=== PATIENT | female | born 1995 | race Caucasian/White ===

== ENCOUNTER 2016-10-03 00:55 | Emergency (ER) | payer OTHER ==
[2016-10-03] MEDS ORDERED: LIDOCAINE VIS-MYLANTA 30 ML UD PO ONE (01:15)
[2016-10-03] MEDS ORDERED: diazePAM 2 MG TAB PO ONE (01:15)
[2016-10-03] MEDS ORDERED: HYDROcodone 5MG/APAP 325MG 1 EA TAB PO ONE (01:15)
[2016-10-03] MEDS ORDERED: KETOROLAC TROMETHAMINE INJ 30 MG/ML VIAL IM ONE (01:16)
[2016-10-03] MEDS ORDERED: SODIUM CHLORIDE 0.9% 1000ML 1,000 ML IVS ONE (01:20)
--- NOTE | 2016-10-03 01:52 | RAD ---
Procedure: XR ABDOMEN 2 VIEWS SUPINE ERECT Exam Date: 10/03/2016 Ordering Provider: Selwyn Michel Clinical Indication: back, chest, abd pain, 3 wks post Comparison: 12/23/2013 Findings: Cardiomediastinal silhouette is within normal limits. No focal lung consolidation. No pleural effusion. No pneumothorax. There is no small or large bowel distention. There is no pneumoperitoneum. There are no suspicious calcifications. Pelvic phleboliths. There is no acute skeletal abnormality. Impression: 1. No acute findings. Electronically signed by: Geovanny Quinones MD 10/03/2016 1:51 AM CDT
--- NOTE | 2016-10-03 02:40 | ED.PDOC ---
History of Present Illness - General Chief Complaint: Chest Pain/OR Stated Complaint: chest pain Time Seen by Provider: 10/03/16 01:09 Source: patient Exam Limitations: no limitations - History of Present Illness Initial Comments: the patient is a 21-year-old female presenting to the emergency room secondary to diffuse back pain that is radiating around to her chest and epigastric area. The patient feels better rocking and moving around. No fever. She has had pain for several hours but just got worse in the last hour. No palpitations. No syncope or near syncope. No shortness of breath. She is very anxious and worked up. She has had poor sleep and she just gave 3 weeks ago. She had been trying to breast-feed but has not had much luck. Timing/Duration: 1 hour Severity: moderate Improving Factors: movement Worsening Factors: immobilization Associated Symptoms: malaise Allergies/Adverse Reactions: Allergies NO KNOWN ALLERGY Allergy (Verified 10/03/16 01:41) Home Medications: Ambulatory Orders Cyclobenzaprine HCl [Flexeril] 5 mg PO TID PRN #30 tab 10/03/16 and Iron 10/03/16 Zoloft 10/03/16 Review of Systems - Review of Systems Constitutional: States: malaise EENTM: States: no symptoms reported Respiratory: States: no symptoms reported Cardiology: States: chest pain - ore along the lateral ribs Gastrointestinal/Abdominal: States: abdominal pain, nausea - epigastricmild Genitourinary: States: no symptoms reported Musculoskeletal: States: back pain, muscle pain Neurological: States: anxiety Endocrine: States: no symptoms reported All other Systems: No Change from Baseline Past Medical History (General) - Patient Medical History Hx Seizures: No Hx Stroke: No Hx Dementia: No Hx Asthma: No Hx of COPD: No Hx Cardiac Disorders: No Hx Congestive Heart Failure: No Hx Pacemaker: No Hx Hypertension: No Hx Thyroid Disease: No Hx Diabetes: No Hx Gastroesophageal Reflux: No Hx Renal Disease: No Hx Cancer: No Hx of HIV: No Hx Hepatitis C: No Hx MRSA: No Surgical History: tonsillectomy - Vaccination History Hx Tetanus, Diphtheria Vaccination: Yes Hx Influenza Vaccination: Yes Hx Pneumococcal Vaccination: No Immunizations Up to Date: Yes - Social History Hx Tobacco Use: Yes Hx Chewing Tobacco Use: No Hx Alcohol Use: No Hx Substance Use: No Hx Substance Use Treatment: No Hx Depression: Yes Feels Threatened In Home Enviroment: No Feels Threatened In a Relationship: No Hx Physical Abuse: No Hx Emotional Abuse: No Hx Suspected Abuse: No - Activities of Daily Living Hospice Agency (if applicable):: None - Female History Patient is a Female of Child Bearing Age (10 -59 yrs old): Yes Hx Last Menstrual Period: 10/02/16 Patient : No - Triage Comment ED Triage Comment: pt states she was put on zoloft after giving due to depression. Family Medical History - Family History Mother Family History: No Known Living Status: Still Living Hx Family Asthma: No Hx Family Hypertension: Yes Physical Exam - Physical Exam General Appearance: Alert, Anxious, Restless Eye Exam: bilateral normal Ears, Nose, Throat: hearing grossly normal, normal ENT inspection, normal pharynx Neck: non-tender, full range of motion, supple Respiratory: lungs clear, normal breath sounds, no respiratory distress, no accessory muscle use, other - her torso in general is sore including her upper back and lower backon both sides of her spine Cardiovascular/Chest: normal peripheral pulses, regular rate, rhythm, no edema Peripheral Pulses: radial,right: 2+, radial,left: 2+, dorsalis pedis,right: 2+, dorsalis pedis,left: 2+ Gastrointestinal/Abdominal: normal bowel sounds, non tender - the exception of some discomfort in her epigastric area, soft Rectal Exam: deferred Back Exam: no vertebral tenderness, CVA tenderness (R), CVA tenderness (L), other - see above Extremity: normal range of motion, non-tender, normal inspection, no pedal edema Neurologic: gusset edger II-XII nml as tested, no motor/sensory deficits, alert, oriented x 3 - very anxious Skin Exam: normal color Comments: Vital Signs - 24 hr 10/03/16 10/03/16 10/03/16 01:04 01:15 02:05 Temperature 97.7 F Pulse Rate 75 75 Pulse Rate [ 75 75 60 monitor] Respiratory 24 24 18 Rate Blood Pressure 123/79 120/74 [Right Arm] O2 Sat by Pulse 98 98 Oximetry Progress - Progress Progress: 10/03/16 02:42 the patient is a 21-year-old female presenting with torso pain in general. I believe that most of this is related to the physical stresses of new motherhood. She is having some significant muscle spasm throughout her back that is wrapping around her torso. The patient responded well to muscle relaxers and anti-inflammatories as well as rehydration. She needs to keep herself well-hydrated. Motrin or Aleve can be used for pain as she is not breast-feeding. Additionally she will be written for some Flexeril for as needed use for muscle spasm. A heat pad on her back may also help. She does need to do stretches. ER warnings were given for any acute worsening. She should follow-up with her primary care doctor before the end of the week. - Results/Orders Results/Orders: Laboratory Tests 10/03/16 10/03/16 10/03/16 01:35 01:35 01:35 WBC 10.1 RBC 4.56 Hgb 12.5 Hct 37.4 MCV 82.0 MCH 27.3 MCHC 33.3 RDW 13.6 Plt Count 300 MPV 8.3 Absolute Neuts (auto) 5.50 Absolute Lymphs (auto) 3.70 H Absolute Monos (auto) 0.70 Absolute Eos (auto) 0.10 Absolute Basos (auto) 0.00 Neutrophils % 54.6 Lymphocytes % 36.7 Monocytes % 7.4 Eosinophils % 0.8 L Basophils % 0.5 PT 11.5 INR 1.020 PTT (SP) 30.0 D-Dimer, Quantitative < 230 Sodium 142 Potassium 3.6 Chloride 107 Carbon Dioxide 31 Anion Gap 7.6 L BUN 12 Creatinine 0.61 BUN/Creatinine Ratio 19.7 Random Glucose 99 Serum Osmolality 282.9 Calcium 9.2 Magnesium 1.8 Total Bilirubin < 0.2 L AST 21 ALT 28 Alkaline Phosphatase 98 Creatine Kinase 54 CK-MB (CK-2) 0.6 CK-MB (CK-2) % Not Reportable Troponin I < 0.02 B-Natriuretic Peptide 26.4 Serum Total Protein 7.0 Albumin 3.8 Globulin 3.2 Albumin/Globulin Ratio 1.2 Amylase 46 Lipase 39 Urine Color Urine Appearance Urine pH Ur Specific [place] Urine Protein Urine Glucose (UA) Urine Ketones Urine Blood Urine Nitrite Urine Bilirubin Urine Urobilinogen Ur Leukocyte Esterase Urine RBC Urine WBC Ur Epithelial Cells Urine Bacteria 10/03/16 01:45 WBC RBC Hgb Hct MCV MCH MCHC RDW Plt Count MPV Absolute Neuts (auto) Absolute Lymphs (auto) Absolute Monos (auto) Absolute Eos (auto) Absolute Basos (auto) Neutrophils % Lymphocytes % Monocytes % Eosinophils % Basophils % PT INR PTT (SP) D-Dimer, Quantitative Sodium Potassium Chloride Carbon Dioxide Anion Gap BUN Creatinine BUN/Creatinine Ratio Random Glucose Serum Osmolality Calcium Magnesium Total Bilirubin AST ALT Alkaline Phosphatase Creatine Kinase CK-MB (CK-2) CK-MB (CK-2) % Troponin I B-Natriuretic Peptide Serum Total Protein Albumin Globulin Albumin/Globulin Ratio Amylase Lipase Urine Color Yellow Urine Appearance Cloudy Urine pH 7.5 Ur Specific [place] 1.020 Urine Protein Negative Urine Glucose (UA) Negative Urine Ketones Negative Urine Blood Trace-lysed H Urine Nitrite Negative Urine Bilirubin Negative Urine Urobilinogen 0.2 Ur Leukocyte Esterase Small H Urine RBC 0 Urine WBC 1-3 Ur Epithelial Cells 1-3 Urine Bacteria 2+ H acute abdominal series appears benign. EKG showed normal sinus rhythm with a normal MD and QT interval. Very mild right axis deviation. No acute ST segment changes concerning for ischemia. Departure - Departure Clinical Impression: Spasm of muscle, back Disposition: Discharge to Home or Self Care Condition: Fair Departure Forms: ED Discharge - Pt. Copy, Patient Portal Self Enrollment Instructions: DI for Back Spasm Diet: regular diet Activity: increase activity as tolerated Referrals: Tesfaye Churchill MD [Primary Care Provider] - 1-5 Days Prescriptions: Cyclobenzaprine HCl [Flexeril] 5 mg PO TID PRN #30 tab PRN Reason: Muscle Spasms Home Medications: Ambulatory Orders Cyclobenzaprine HCl [Flexeril] 5 mg PO TID PRN #30 tab 10/03/16 and Iron 10/03/16 Zoloft 10/03/16 Additional Instructions: the patient is a 21-year-old female presenting with torso pain in general. I believe that most of this is related to the physical stresses of new motherhood. She is having some significant muscle spasm throughout her back that is wrapping around her torso. The patient responded well to muscle relaxers and anti-inflammatories as well as rehydration. She needs to keep herself well-hydrated. Motrin or Aleve can be used for pain as she is not breast-feeding. Additionally she will be written for some Flexeril for as needed use for muscle spasm. A heat pad on her back may also help. She does need to do stretches. ER warnings were given for any acute worsening. She should follow-up with her primary care doctor before the end of the week.
[2016-10-03 02:52] VITALS: BP 111/44; TEMP 96.9; O2SAT 100
== END 2016-10-03 02:52 | disposition home or self-care (01) ==
LOC: ER 00:55
DX: M62.830 Muscle spasm of back (principal); F32.9 Major depressive disorder, single episode, unspecified; Z87.891 Personal history of nicotine dependence; Z79.899 Other long term (current) drug therapy
CPT/HCPCS: 36415; 74020; 80053; 81001; 82150; 82550; 82553; 83690; 83735; 83880; 84484; 85025; 85379; 85610; 85730; 87086; 93005; J1885; J7030

== ENCOUNTER → 2016-10-24 | Outpatient (CLI) | payer OTHER ==
--- NOTE | 2016-10-24 15:26 | US ---
EXAM DESCRIPTION: US Gallbladder CLINICAL HISTORY: R10.11 right upper quadrant abdominal pain COMPARISON: Abdominal series dated October 03, 2016. TECHNIQUE: Routine sonographic images of the right upper quadrant of the abdomen were acquired and submitted for review. FINDINGS: Liver: The liver is normal in size measuring 14.4 cm at the midclavicular line. Liver parenchyma is mildly increased but is within normal limits. No focal hepatic mass. Bile ducts- Intrahepatic and extrahepatic bile ducts not dilated with common bile duct measuring 2.1 mm. Gallbladder: There is a 5 mm calcification in the neck of the gallbladder. No evidence for wall thickening or pericholecystic fluid. Pancreas: Visualized portion of the pancreas appears unremarkable. Right kidney: Limited images of the right kidney appears unremarkable. Aorta & Inferior vena cava: visualized portions appear normal Ascites: none IMPRESSION: 1. Cholelithiasis without sonographic evidence of acute cholecystitis. Electronically signed by: Rodolfo Castillo MD 10/24/2016 3:25 PM CDT
== END | disposition home or self-care (01) ==
LOC: US 10:16
PROVIDERS: ATTEND Obstetrics & Gynecology
DX: R10.11 Right upper quadrant pain (principal)

== ENCOUNTER 2016-11-11 06:24 | Emergency (ER) | payer OTHER ==
[2016-11-11 06:40] VITALS: TEMP 96.8
[2016-11-11] MEDS ORDERED: LIDOCAINE VIS-MYLANTA 30 ML UD PO ONE (07:15)
--- NOTE | 2016-11-11 07:32 | RAD ---
PROCEDURE: Chest,2 Views CLINICAL HISTORY: abd/chest pain 4hrs INDICATION: Same as above COMPARISON: None available at present TECHNIQUE: PA and and lateral chest radiographs were obtained. FINDINGS: The lung sharif are well inflated. There are no discrete airspace infiltrates, pneumothoraces or pleural effusions. The pulmonary vascularity is normal The cardiomediastinal silhouette is unremarkable for patient's age and sex. IMPRESSION: There is no acute pleural-parenchymal process seen in the imaged lung sharif. Place of interpretation: Teleradiology. Electronically signed by: Rolando Unger MD 11/11/2016 7:30 AM CDT Workstation: [id number]
--- NOTE | 2016-11-11 07:34 | RAD ---
PROCEDURE: Abdomen Flat Upright Clinical History: abd/chest pain 4hrs Indication: Same as above Comparison: Chest x-ray done on the same day Technique: Two views of the abdomen and pelvis were done. Findings: There is no gross evidence of free air in the abdomen or the pelvis . The small and large bowel gas pattern does not show any evidence of obstruction, ileus or bowel wall thickening. There is no visualization of radiopaque calculi in the outline of the urinary tract. The visualized lung bases are unremarkable . There is mild constipation. Impression: There is mild constipation Electronically signed by: Rolando Unger MD 11/11/2016 7:32 AM CDT Workstation: [email or web address]
[2016-11-11 07:52] VITALS: O2SAT 99
[2016-11-11] MEDS ORDERED: MAGNESIUM HYDROXIDE 30 ML UD PO ONE (08:30)
[2016-11-11] MEDS ORDERED: HYDROcodone 7.5MG/APAP 325MG 1 EA TAB PO ONE (08:30)
[2016-11-11] MEDS ORDERED: PROMETHAZINE HCL 25 MG TAB PO ONE (08:31)
[2016-11-11 08:59] VITALS: BP 129/74
--- NOTE | 2016-11-11 09:06 | ED.PDOC ---
History of Present Illness - General Chief Complaint: Chest Pain/IN Stated Complaint: Chest pain Time Seen by Provider: 11/11/16 06:45 Source: patient Exam Limitations: no limitations - History of Present Illness Initial Comments: the patient is a 21-year-old female presenting to the emergency room secondary to lower chest and abdominal pain. The patient has been seen several times for this complaint over the last couple of months by us here at the emergency room as well as by her surveillance monitor the patient had a CT scan a few years ago for abdominal pain that did not show any real significant pathology. The patient had a right upper quadrant ultrasound just a few weeks ago that was essentially negative. The patient has been getting intermittent upper abdominal and lower chest discomfort on at least 8-10 occasions over the last few months since the of her child. No real shortness of breath with the episodes. The episodes tend to come on when she is lying back and being still do have some nausea at times with them. Episodes tend to resolve on their own. Moving around seems to make him a little worse. She does not have any chest pain with aerobic activity or stressful exercise. The episode this morning started around 4 AM she was sleeping. She did have one episode of vomiting yesterday morning. No blood or bile in the vomitus. The patient has not had any bloody or melanotic stools. Exam here today shows no chest tenderness to palpation. She does have significant upper abdominal discomfort palpation. No definite rebound or peritoneal signs. No palpable masses. No bruising. She does report some back pain but there is no back pain to palpation. No palpitations. No syncope or near syncope. The patient had a fairly extensive workup on her last visit here to look for a cardiac etiology. None was found at the time. It was thought that she likely had some gastritis as well as some anxiety and some musculoskeletal pain from the physical demands of a . She has no clinical stigmata of any congestive heart failure. She is regular rate and rhythm currently. She is oxygenating well. Lungs are clear. Timing/Duration: 1-3 hours Severity: moderate Improving Factors: nothing Worsening Factors: movement Associated Symptoms: loss of appetite, nausea/vomiting Allergies/Adverse Reactions: Allergies NO KNOWN ALLERGY Allergy (Verified 10/03/16 01:41) Home Medications: Ambulatory Orders and Iron DAILY 10/03/16 ALPRAZolam [Xanax] 0.5 mg PO PRN PRN 11/11/16 Cyclobenzaprine HCl [Flexeril] 10 mg PO TID PRN 11/11/16 Famotidine 20 mg PO BID #60 tab 11/11/16 Review of Systems - Review of Systems Constitutional: States: no symptoms reported EENTM: States: no symptoms reported Respiratory: States: no symptoms reported Cardiology: States: chest pain - localized under thelower fourth of the sternum Gastrointestinal/Abdominal: States: abdominal pain, constipation, nausea, vomiting Genitourinary: States: no symptoms reported Musculoskeletal: States: no symptoms reported Skin: States: no symptoms reported Neurological: States: anxiety Endocrine: States: no symptoms reported All other Systems: No Change from Baseline Past Medical History (General) - Patient Medical History Hx Seizures: No Hx Stroke: No Hx Dementia: No Hx Asthma: No Hx of COPD: No Hx Cardiac Disorders: No Hx Congestive Heart Failure: No Hx Pacemaker: No Hx Hypertension: No Hx Thyroid Disease: No Hx Diabetes: No Hx Gastroesophageal Reflux: No Hx Renal Disease: No Hx Cancer: No Hx of HIV: No Hx Hepatitis C: No Hx MRSA: No Surgical History: tonsillectomy - Vaccination History Hx Tetanus, Diphtheria Vaccination: Yes Hx Influenza Vaccination: Yes Hx Pneumococcal Vaccination: Yes Immunizations Up to Date: Yes - Social History Hx Tobacco Use: No Hx Chewing Tobacco Use: No Hx Alcohol Use: No Hx Substance Use: No Hx Substance Use Treatment: No Hx Depression: Yes Hx Physical Abuse: No Hx Emotional Abuse: No Hx Suspected Abuse: No - Female History Patient is a Female of Child Bearing Age (10 -59 yrs old): Yes Hx Last Menstrual Period: 10/02/16 Patient : No Family Medical History - Family History Mother Family History: No Known Living Status: Still Living Hx Family Asthma: No Hx Family Hypertension: Yes Physical Exam - Physical Exam General Appearance: Alert, Anxious, No apparent distress - the patient reports the discomfort however when left alone she does fall sleep. she does not appear to be in any distress clinically. She is not diaphoretic. She is not working hard to breathe. No wheezing. Eye Exam: bilateral normal Ears, Nose, Throat: hearing grossly normal, normal ENT inspection, normal pharynx Neck: non-tender, full range of motion, supple Respiratory: chest non-tender, lungs clear, normal breath sounds, no respiratory distress, no accessory muscle use Cardiovascular/Chest: normal peripheral pulses, regular rate, rhythm, no edema Peripheral Pulses: radial,right: 2+, radial,left: 2+, dorsalis pedis,right: 2+, dorsalis pedis,left: 2+ Gastrointestinal/Abdominal: soft, other - diffuse upper abdominal discomfort palpation. No rebound or peritoneal signs. No definite palpable masses. The patient does have a small umbilical hernia that is palpable and not significantly tender. Rectal Exam: deferred Back Exam: normal inspection, no CVA tenderness, no vertebral tenderness Extremity: normal range of motion, non-tender, normal inspection, no pedal edema , no calf tenderness, normal capillary refill Neurologic: client technical specialist II-XII nml as tested, no motor/sensory deficits, alert, normal mood/affect - with the exception of some anxiety, oriented x 3 Skin Exam: normal color Comments: Vital Signs - 24 hr 11/11/16 11/11/16 11/11/16 06:33 06:35 07:33 Temperature 96.8 F L Pulse Rate 90 Pulse Rate [ 90 90 85 Left radial] Respiratory 18 18 18 Rate Blood Pressure 143/80 129/90 [Right Arm] O2 Sat by Pulse 100 100 Oximetry 11/11/16 11/11/16 07:51 08:58 Temperature Pulse Rate Pulse Rate [ 77 75 Left radial] Respiratory 18 18 Rate Blood Pressure 133/73 129/74 [Right Arm] O2 Sat by Pulse 99 99 Oximetry Progress - Progress Progress: 11/11/16 09:09 the patient is a 21-year-old female presenting with lower chest and upper abdominal discomfort. There is a fairly significant amount of constipation on the abdominal x-ray but otherwise the x-ray of the abdomen and chest appear benign. The patient was given a dose of milk of magnesia for constipation. She does need to keep well-hydrated. MiraLAX Saturday and Saturday may prove beneficial for the patient. Additionally she is going to be written for famotidine twice daily for the next month. She needs to keep a diary of the chest and abdominal discomfort. She does have a small amount of blood in her urine today. This does need to be repeated with her primary care doctor in 1 week. eR warnings are given for any significant worsening. - Results/Orders Results/Orders: Vital Signs - 24 hr 11/11/16 11/11/16 11/11/16 06:33 06:35 07:33 Temperature 96.8 F L Pulse Rate 90 Pulse Rate [ 90 90 85 Left radial] Respiratory 18 18 18 Rate Blood Pressure 143/80 129/90 [Right Arm] O2 Sat by Pulse 100 100 Oximetry 11/11/16 11/11/16 07:51 08:58 Temperature Pulse Rate Pulse Rate [ 77 75 Left radial] Respiratory 18 18 Rate Blood Pressure 133/73 129/74 [Right Arm] O2 Sat by Pulse 99 99 Oximetry Laboratory Tests 11/11/16 11/11/16 08:16 08:30 Urine Color Yellow Urine Appearance Clear Urine pH 6.0 Ur Specific [place] 1.025 Urine Protein Negative Urine Glucose (UA) Negative Urine Ketones Negative Urine Blood Moderate H Urine Nitrite Negative Urine Bilirubin Negative Urine Urobilinogen 0.2 Ur Leukocyte Esterase Trace H Urine RBC 5-10 H Urine WBC 1-3 Ur Epithelial Cells 5-10 Urine Bacteria Rare Urine HCG, Qual Negative - EKG/XRAY/CT CT Ordered: No CT Interpretation Call Back: No Departure - Departure Clinical Impression: Gastritis Constipation Qualifiers: Constipation type: unspecified constipation type Qualified Code(s): K59.00 - Constipation, unspecified Disposition: Discharge to Home or Self Care Condition: Fair Departure Forms: ED Discharge - Pt. Copy, Patient Portal Self Enrollment Instructions: DI for Gastritis, DI for Constipation Diet: bland diet Activity: increase activity as tolerated Referrals: Tesfaye Churchill MD [Primary Care Provider] - 1-5 Days Prescriptions: Famotidine 20 mg PO BID #60 tab Home Medications: Ambulatory Orders and Iron DAILY 10/03/16 ALPRAZolam [Xanax] 0.5 mg PO PRN PRN 11/11/16 Cyclobenzaprine HCl [Flexeril] 10 mg PO TID PRN 11/11/16 Famotidine 20 mg PO BID #60 tab 11/11/16 Additional Instructions: the patient is a 21-year-old female presenting with lower chest and upper abdominal discomfort. There is a fairly significant amount of constipation on the abdominal x-ray but otherwise the x-ray of the abdomen and chest appear benign. The patient was given a dose of milk of magnesia for constipation. She does need to keep well-hydrated. MiraLAX Saturday and Saturday may prove beneficial for the patient. Additionally she is going to be written for famotidine twice daily for the next month. She needs to keep a diary of the chest and abdominal discomfort. She does have a small amount of blood in her urine today. This does need to be repeated with her primary care doctor in 1 week. eR warnings are given for any significant worsening. She should also hold the vitamin for a few weeks as this can make the gastritis more significant.
== END 2016-11-11 09:35 | disposition home or self-care (01) ==
LOC: ER 06:24
DX: K59.00 Constipation, unspecified (principal); K29.70 Gastritis, unspecified, without bleeding
CPT/HCPCS: 71020; 74010; 81001; 81025; 93005; Q0169